=== PATIENT | male | born 1975 | race Caucasian/White ===

== ENCOUNTER 2016-12-13 12:01 | Emergency (ER) | payer BC, MEDICARE ==
[~2016-12-13] VITALS: Ht 185.4 cm; Wt 99.8 kg
[~2016-12-13 12:01] MED LIST: AMIODARONE 200200 MG PO; AMLO5TAB PO; ASPIR-LOW81 MG PO; ATORVASTATIN CA80 MG PO; BENADRYL 50MG C50 MG PO; CARDIZEM CD120 M1 PO; CIALIS5 MG PO; DIAZEPAM5 M1 PO; EMBEDA ER 60-21 EACH PO; IBUPROFEN800 MG PO; KADIAN60 MG PO; LIPITOR80 MG PO; LISINOPRIL/HCTZ1 TA3 FT; LISINOPRIL20 MG PO; MEDROL 4MG. DOSE4 MG PO; METOPROLOL SUCC50 M1 PO; NAPROSYN 500MG500 MG PO; PERCOCET1 TAB PO; PRAVACHOL20 MG PO; RANEXA500 M1 PO; ROBAXIN-750750 MG PO; STERAPRED DS10 MG PO; TIZANIDINE HCL 44 MG NG; TRAZADONE HYDR100 MG PO; TRAZODONE150 MG PO
[2016-12-13 12:51] LABS: BUN 7 mg/dL (7-18); GFR (ESTIMATED) 92 ML/MIN (>60)
--- NOTE | 2016-12-13 14:00 | CONSULT NOTE ---
Standard Demographics Patient Demo Date of Consultation: 12/13/16 Referring Provider: Richie Manrique MD Reason for Consultation: Chest pain, palpitations Problem list Problem list: 1. Coronary artery disease A. Coronary bypass grafting, 01/2016 B. Cardiac catheterization, 03/2016 for recurrent chest pain. Bypass grafts patent. 2. Chronic alcohol use 3. Hypertension 4. Hyperlipidemia 5. Anxiety 6. Chronic back pain 7. History of atrial fibrillation after bypass surgery with follow-up Holter and event monitors revealing no evidence of atrial fibrillation. History of present illness: History of present illness: 41-year-old white male with history of coronary disease and coronary bypass grafting with recurrent chest pain thereafter for which cardiac catheterization in 03/2016 revealed patent bypass grafts came to the emergency department today for palpitations and RIGHT arm pain. Patient states symptoms have been recurrent over the last 3 days lasting hours at a time. This is not similar to his angina prior to his bypass. Initial set of enzymes are normal. Electrocardiogram is sinus without acute abnormality. Cardiology consulted for evaluation and recommendation. Past Medical History: General: Hypertension Yes CVA No Seizures No TB No COPD No Asthma No Diabetes No Angina No SC Yes Hyperlipidemia Yes Urinary No Cancer No Rheumatic H.D. No Ulcers No MRSA No GB Disease No Other BACK PROBLEMS Past Surgical HX: Previous Surgery?Y BACK X2 RT ANKLE RT EYE HEART CATH 2013 HEART CATH 02/13-06/15 BYPASS 2 VESSEL 01/2016 Allergies Coded Allergies: Penicillins (Intermediate, I-HIVES 02/13/16) Home medications: Reported Medications Morphine Sulfate/Naltrexone (Embeda ER 60-2.4 MG Capsule) 1 EACH PO BID #60 RANOLAZINE (RANEXA) 500 MG PO BID #60 Lisinopril 20 MG PO DAILY #30 Atorvastatin Calcium 40 MG PO QHS #30 Trazodone Hcl (Trazodone HCl) 150 MG PO QHS #60 Aspirin (Aspir-Low) 81 MG PO DAILY Methocarbamol (Robaxin 750MG) 750 MG PO PRN PRN BACK PAIN Diazepam 5 MG PO Q8H PRN UNKNOWN #30 Tadalafil (Cialis) 5 MG PO PRN PRN . #10 Current Medications: Current Medications Sodium Chloride 10 ML PRN PRN IV Sodium Chloride 10 ML PRN PRN IV Immunization HX DT/Tetanus 5-10 Years Flu Refused Pneumonia Never Had Family history Family HX Family Hx Insignificant No Diabetes No CAD Yes Hypertension Yes Hyperlipidemia Yes Cancer Yes TB No Social Hx: Smoking HX Tobacco No Alcohol Alcohol: Yes How much do you drink 6-10 Drinks Per Day Hx of Drug Use Drug Use? No Patien't marital status is Review of systems: Constitutional diaphoresis, malaise. Respiratory SOB with excertion. Cardiovascular see HPI, chest pain Gastrointestinal/Abdominal No no symptoms reported Genitourinary No: no symptoms reported. Musculoskeletal back pain. Neurological No: no symptoms reported. Exam: Admission Vital Signs: 1ST Vital Signs Result Date Time Pulse Ox 99 12/13 1202 B/P 142/90 12/13 1202 Temp 97.9 12/13 1202 Pulse 99 12/13 1202 Resp 16 12/13 1202 Last Vital Signs: Vital Signs Result Date Time Pulse Ox 97 12/13 1312 B/P 127/79 12/13 1312 Pulse 67 12/13 1312 Resp 16 12/13 1312 Temp 97.9 12/13 1202 Exam General appearance: alert, awake, no acute distress Neck: no carotid bruit, no JVD Cardiovascular: regular rate & rhythm, no murmur Respiratory: clear to auscultation, good air movement ABD: soft, no tenderness Extremities: moves all, no peripheral edema Neuro: alert, intact, oriented Laboratory data: Laboratory Tests 12/13/16 1206: B-Natriuretic Peptide 54 12/13/16 1206: Sodium 135 L, Potassium 4.0, Chloride 99, Carbon Dioxide 27, BUN 7, Creatinine 0.9, Estimated Creat Clear 149, Estimated GFR (MDRD) 92, Glucose 116 H, Calcium 8.8, Total Bilirubin 0.8, AST 62 H, ALT 81 H, Alkaline Phosphatase 97, Creatine Kinase 151, CK and CKMB Interp 2.7, Troponin I < 0.02, Total Protein 7.9, Albumin 3.6, Globulin 4.3 H, Albumin/Globulin Ratio 0.8 L, D-Dimer 117 Plan: Assessment: 1. Atypical chest pain and RIGHT arm pain lasting hours at a time with normal troponin and no acute change on electrocardiogram. Recommend obtaining a second troponin and if normal patient could be discharged home. 2. Palpitations, recurrent. Previous event monitors and Holter monitors have been unremarkable. Discussed placement of an implantable loop recorder as an outpatient. 3. Chronic alcohol use 4. Hypertension, controlled 5. Hyperlipidemia, on statin therapy 6. History of severe depression on beta roshan therapy. Recommendations: 1. If second troponin is normal then patient could be discharged home for follow -up as previously scheduled appointment tomorrow. Will discuss implantation of a loop recorder at that time. 2. Continue current home medications. at [id number]
--- NOTE | 2016-12-13 14:42 | Emergency Room Report ---
History of Present Illness Time Seen by MD [id number] Presenting Problem in Triage Pt arrived:Walked Presenting Problem:PT REPORTS HEART FEELING LIKE IT'S BEATING FAST AND "ACHING" LIKE CHEST PAIN ACROSS CHEST X3 DAYS. PT REPORTS CONSTANT DULL PAIN DOWN R ARM TO HAND X2 DAYS. 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 N Clinical Suspician of Infection? N Mental Status: 1 - Regular (Normal Baseline) Sepsis Risk:Low Sepsis Risk Have you (or family members/close friends) recently traveled outside the [place]? N If Yes, where/when: Have you had exposure to infectious disease within the past month? N TB? Other? Specify: Source patient, RN notes reviewed, family, RN/MD Exam Limitations no limitations Comment This is a 41-year-old male patient presented to the emergency room with chest pain and palpitations that started approximately 3 days ago. She describes the chest pain as "aching like", across his chest, radiating down the RIGHT arm, although to the hand. He underwent open-heart surgery just a few years ago. Patient has a strong family history of cardiac disease in his brother and father, at an early age, in the early 40s. The patient denies any shortness of breath or diaphoresis. His symptoms are not associated with activity, not relieved by rest. Chest pain since to be worse with deep inspiration as well as palpation over his anterior chest wall. Patient also advised that he has brief episodes of nausea and dizziness, and that he feels "odd". Cardiac Chest Pain Chest pain indicative of cardiac Yes Timing/Duration constant, 3 days Severity/Quality mild, aching Location central Chest Pain Radiation shoulder(s) (LEFT) Activities at Onset none Modifying Factors worse with breathing, worse with coughing, worse with palpation Nitro Today/Relief no nitro taken today Aspirin Treatment Today provided at home Beta roshan treatment today Beta roshan taken Cardiac risk factors + cardiovascular disease, Elevated lipids, + family history, HTN controlled Prior Workup/Intervention CABG-vessel(s), cardiac cath (within the past 12 months) ALLERGIES Coded Allergies: Penicillins (Intermediate, I-HIVES 02/13/16) Home Medications Reported Medications Morphine Sulfate/Naltrexone (Embeda ER 60-2.4 MG Capsule) 1 EACH PO BID #60 RANOLAZINE (RANEXA) 500 MG PO BID #60 Lisinopril 20 MG PO DAILY #30 Atorvastatin Calcium 40 MG PO QHS #30 Trazodone Hcl (Trazodone HCl) 150 MG PO QHS #60 Aspirin (Aspir-Low) 81 MG PO DAILY Methocarbamol (Robaxin 750MG) 750 MG PO PRN PRN BACK PAIN Diazepam 5 MG PO Q8H PRN UNKNOWN #30 Tadalafil (Cialis) 5 MG PO PRN PRN . #10 History Medical History General CAD? No Angina: No NM: Yes Hypertension? Yes Hyperlipidemia? Yes CHF? No DVT? No PE? No COPD? No Asthma? No Anemia? No GERD? No Gastric ulcers? No GI Bleed? No Hernia? No Thyroid Problems? No Hypothyroidism? No CVA? No Seizures? No Diabetes? No Renal Insuffiency? No End Stage Renal Disease? No UTI? No Stones? No BPH? No GB Disease: No Nephritic Syndrome? No Asplenia? No Hepatitis? No Sickle Cell Disease? No Arthritis? No Migraines? No Cataracts? No Glaucoma? No MRSA? No HIV? No TB? No Anxiety? No Depression? No Cancer? No More? No Immunization Hx DT/Tetanus 5-10 Years Ago Flu Refused Pneumonia Never Had Surgical Hx Previous Surgery?Y BACK X2 RT ANKLE RT EYE HEART CATH 2013 HEART CATH 02/13-06/15 BYPASS 2 VESSEL 01/2016 Family History Family Hx Diabetes No CAD Yes Hypertension Yes Hyperlipidemia Yes Cancer Yes TB No Social History Smoking Hx Smoker: Never Smoker Tobacco: No Alcohol Alcohol: Yes How much do you drink 6-10 Drinks Per Day Review of Systems All Other Systems Reviewed and Negative Cardiovascular chest pain Physical Exam Vital Signs Vital Signs Date Time Temp Pulse Resp B/P Pulse O2 O2 Flow FiO2 Ox Delivery Rate 12/13 1452 97.9 66 16 125/86 98 12/13 1436 66 16 125/86 98 12/13 1356 77 16 113/74 98 12/13 1312 67 16 127/79 97 12/13 1202 97.9 99 16 142/90 99 General Appearance normal appearance, WD/WN Neck normal inspection, non-tender, supple, full range of motion Respiratory Status Yes: trachea midline, chest symmetrical, non tender chest. No: respiratory distress. Lung Sounds bilateral: normal breath sounds, lungs clear. Cardiovascular normal exam, regular rate/rhythm, no peripheral edema, no gallop, no JVD, no murmur, no rub, normal peripheral pulses Gastrointestinal normal bowel sounds, normal exam, non tender, soft, no organomegaly Extremities non-tender, normal range of motion, normal inspection Neurologic alert, patient care specialist II-XII nml as tested, normal exam, oriented x 3 Mental status normal mood/affect Skin intact, normal color, warm/dry Medical Decision Making LABS/Meds/Orders Pt receiving controlled substance in ED? No Comment On reevaluation patient appears medically stable, completely asymptomatic. Case discussed with cardiology, LAURI Ortiz (c/o Sunday Smith MD) who came to the emergency room and evaluated the patient. After 2 negative cardiac enzymes, electrocardiograms showing no acute ischemic changes, cardiology decided to discharge patient home and see him in the office, as already scheduled tomorrow morning. Discussed the plan of care with patient in detail, aware of need to see Dr. Smith in the clinic tomorrow. Agreeable with the above plan as patient does not appear to have an emergent medical/cardiac condition at this time. Results/Orders Laboratory Tests 12/13/16 1345: Creatine Kinase 146, CK-MB (CK-2) Rel Index 1.5, CK and CKMB Interp 2.2, Troponin I < 0.02 12/13/16 1335: Myoglobin Cancelled 12/13/16 1206: B-Natriuretic Peptide 54 12/13/16 1206: Sodium 135 L, Potassium 4.0, Chloride 99, Carbon Dioxide 27, BUN 7, Creatinine 0.9, Estimated Creat Clear 149, Estimated GFR (MDRD) 92, Glucose 116 H, Calcium 8.8, Total Bilirubin 0.8, AST 62 H, ALT 81 H, Alkaline Phosphatase 97, Creatine Kinase 151, CK and CKMB Interp 2.7, Troponin I < 0.02, Total Protein 7.9, Albumin 3.6, Globulin 4.3 H, Albumin/Globulin Ratio 0.8 L, D-Dimer 117, WBC 8.6, RBC 4.81, Hgb 15.8, Hct 43.7, MCV 90.9, RDW 12.3, Plt Count 263, MPV 6.6 L, Gran % 67.3, Gran # 5.8, Lymphocytes % 24.9, Monocytes % 7.0, Eosinophils % 0.4, Basophils % 0.4, Lymphocytes # 2.2, Monocytes # 0.6, Eosinophils # 0.0, Basophils # 0.0, PUBS MCHC 36.2 H, MCH 32.9 H Orders Procedure Date/time Status CARDIAC ENZYMES 12/13 1335 Complete IV SALINE LOCK 12/13 1212 Active ELECTROCARDIOGRAM REQUEST 12/13 1207 Active IV SALINE LOCK 12/13 1207 Active OXYGEN PER NURSE 12/13 1207 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 of ischemic chgs, no ectopy, normal QRS, normal NC, no EKG for comparison, non-spec. ST/Twave chgs, ST elevation, ST depression, LBBB, RBBB, ectopy, abnormal Q waves XRAY/CT/US XRAY/CT/US XRAY chest XR interpretation by reviewed by me Xray Results no infiltrates, normal heart size, normal lung inflation cortez Departure Departure Time of Disposition 1439 Disposition DC Home or Self Care(routine) Clinical Impression Primary Impression: Chest pain Qualifiers: Chest pain type: unspecified Qualified Code: R07.9 - Chest pain, unspecified Secondary Impressions: Palpitations Condition STABLE Referrals Sunday Smith MD tomorrow as already scheduled Patient Instructions DI for Atypical Chest Pain, DI for Palpitations Additional Instructions Please follow-up with Dr. Sunday Smith as previously scheduled, and discussed with LAURI Vitale today, while in the emergency room. Discharge Counseling Counseled pt/family regarding diagnosis, test results, medications/RX, home care, follow up needs Comment Please follow-up with Dr. Sunday Smith as previously scheduled, and discussed with LAURI Vitale today, while in the emergency room. ED Critical Care Critical Care No at [phone]
[2016-12-13 14:52] VITALS: BP 125/86
[2016-12-13 15:03] LABS: HEMOGLOBIN 15.8 g/dL (14.1-18.0); LYMPH # 2.2 K/mm3 (0.7-4.5); LYMPH % 24.9 % (10-50)
== END 2016-12-13 14:54 | disposition home or self-care (01) ==
LOC: ER 12:01
PROVIDERS: Emergency Medicine
DX: R07.9 Chest pain, unspecified (principal); R00.2 Palpitations; I25.2 Old myocardial infarction; I10 Essential (primary) hypertension; E78.5 Hyperlipidemia, unspecified; Z88.0 Allergy status to penicillin

== ENCOUNTER 2016-12-21 07:30 | Day surgery (SDC) | payer BC, MEDICARE ==
--- NOTE | 2016-12-21 09:26 | Operative Note ---
Procedure: Date of procedure: 12/21/16 Time of procedure: 0900 Procedure performed: Implantable loop recorder Indication: Palpitations, suspected atrial fibrillation with history of post CABG atrial fibrillation Technique: Technique: 1 percent lidocaine with epinephrine used to anesthetize the size. The LEFT anterior aspect of the chest along the LEFT sternal border. Using the preformed scalpel, an incision was made in the loop recorder was placed subcutaneously without difficulty. Following the deployment of the loop recorder interrogation of the device was performed to ensure appropriate voltage was being detected. Once this was verified. Steri-Strips were placed over the incision and the patient was prepped to discharge home. Patient tolerated procedure well with minimal discomfort. Impression: Successful deployment of loop recorder Serial number: [id number] Plan: Routine post op care. Follow up in clinic in one week. at [phone]
--- NOTE | 2016-12-21 09:26 | Operative Note ---
Procedure: Date of procedure: 12/21/16 Time of procedure: 0900 Procedure performed: Implantable loop recorder Indication: Palpitations, suspected atrial fibrillation with history of post CABG atrial fibrillation Technique: Technique: 1 percent lidocaine with epinephrine used to anesthetize the size. The LEFT anterior aspect of the chest along the LEFT sternal border. Using the preformed scalpel, an incision was made in the loop recorder was placed subcutaneously without difficulty. Following the deployment of the loop recorder interrogation of the device was performed to ensure appropriate voltage was being detected. Once this was verified. Steri-Strips were placed over the incision and the patient was prepped to discharge home. Patient tolerated procedure well with minimal discomfort. Impression: Successful deployment of loop recorder Serial number: [id number] Plan: Routine post op care. Follow up in clinic in one week. at [phone]
== END 2016-12-21 09:15 | disposition home or self-care (01) ==
LOC: CATHLAB 07:30
PROVIDERS: Internal Medicine
PROC: 0JH632Z Insertion of Monitoring Device into Chest Subcutaneous Tissue and Fascia, Percutaneous Approach (ICD-10-PCS; principal; 2016-12-21 08:30)
DX: I48.91 Unspecified atrial fibrillation (principal); R07.9 Chest pain, unspecified; I25.10 Atherosclerotic heart disease of native coronary artery without angina pectoris; R42 Dizziness and giddiness; R00.2 Palpitations; Z95.1 Presence of aortocoronary bypass graft
CPT/HCPCS: C1764